=== PATIENT | male | born 1955 | race African-American/Black ===

== ENCOUNTER → 2016-12-14 | Outpatient (CLI) | payer BC ==
[2016-12-14 09:36] LABS: CREATININE 1.3 mg/dL (0.6-1.3)
== END ==
LOC: CAT 08:57
PROVIDERS: Family Medicine
DX: R06.02 Shortness of breath (principal)

== ENCOUNTER → 2017-10-10 | Outpatient (CLI) | payer BC | LOC: RAD 14:25 | DX: R05 Cough (principal) ==